=== PATIENT | female | born 1940 | race Caucasian/White ===

== ENCOUNTER 2017-07-13 10:31 | Emergency (ER) | payer OTHER ==
[~2017-07-13] VITALS: Ht 170.2 cm; Wt 86.2 kg
[2017-07-13] MEDS ORDERED: IBUPROFEN 600600 M1 PO (13:19)
[2017-07-13 13:30] VITALS: BP 155/82
== END 2017-07-13 13:31 | disposition home or self-care (01) ==
LOC: ER 10:31
DX: S42.201A Unspecified fracture of upper end of right humerus, initial encounter for closed fracture (principal); I10 Essential (primary) hypertension; Z98.890 Other specified postprocedural states; Z88.5 Allergy status to narcotic agent; W19.XXXA Unspecified fall, initial encounter; Y93.89 Activity, other specified; Y92.89 Other specified places as the place of occurrence of the external cause; Y99.9 Unspecified external cause status

== ENCOUNTER 2018-08-15 19:48 | Emergency (ER) | payer OTHER ==
[~2018-08-15] VITALS: Ht 167.6 cm; Wt 90.7 kg
[~2018-08-15 19:48] MED LIST: IBUPROFEN 600600 M1 PO
[2018-08-15 22:12] VITALS: BP 182/88
== END 2018-08-15 22:05 | disposition home or self-care (01) ==
LOC: ER 19:48
DX: S00.12XA Contusion of left eyelid and periocular area, initial encounter (principal); I10 Essential (primary) hypertension; Z88.5 Allergy status to narcotic agent; Z90.81 Acquired absence of spleen; W01.198A Fall on same level from slipping, tripping and stumbling with subsequent striking against other object, initial encounter; Y92.59 Other trade areas as the place of occurrence of the external cause; Y93.89 Activity, other specified; Y99.8 Other external cause status